=== PATIENT | female | born 1990 | race Two or more races ===

== ENCOUNTER 2022-02-14 11:01 | Emergency (ER) | payer OTHER, SELFPAY ==
[2022-02-14] VITALS (9 sets, daily range): BP systolic 94–122; BP diastolic 49–82; PULSE 56–89; RESP 16; TEMP 36.2; O2SAT 100; BMI 22.1
[2022-02-14 12:24] LABS: Basophils Absolute Auto 0.03 K/uL (0.00-0.30); Basophils Percent Auto 0.4 % (0.0-3.0); Eosinophils Absolute Auto 0.03 K/uL (0.00-0.50); Eosinophils Percent Auto 0.4 % (0.0-7.0); Hematocrit 37.8 % (33.0-51.0); Hemoglobin* 12.8 gm/dL (12.0-16.0); Immature Granulocytes Abs Auto 0.02 K/uL (0.00-0.30); Lymphocytes Percent Auto 19.5 % (20-44); Mean Corpuscular HGB Conc 34 gm/dL (32-36); Mean Corpuscular Hemoglobin 29 pg (26-34); Mean Corpuscular Volume 87 fL (80-100); Monocytes Percent Auto 4.2 % (0.0-11.0); Neutrophils Percent Auto 75.2 % (42.0-72.0); Platelet Count* 254 K/uL (140-440); Red Blood Count 4.35 m/uL (4.00-5.20); White Blood Count* 7.95 K/uL (4.50-11.00)
[2022-02-14 12:28] LABS: Slide Review Reflex No
[2022-02-14] MEDS: 0.9 % SODIUM CHLORIDE 1000 ml 1,000 ML IV (12:28)
[2022-02-14 12:43] LABS: Troponin, Point-of-Care* 0.01 ng/ml (0.01-0.04)
[2022-02-14 12:49] LABS: Chloride* 103 mmol/L (96-114); Partial Thromboplastin Time* 23 Seconds (23-33); Potassium* 3.8 mmol/L (3.6-5.1); Sodium* 133 mmol/L (135-149)
[2022-02-14 12:50] LABS: INR 0.95 (0.91-1.10); Prothrombin Time 13.1 Seconds
[2022-02-14 12:52] LABS: Blood Urea Nitrogen* 18 mg/dL (5-24); Carbon Dioxide* 21 mmol/L (20-32); Creatinine* 0.5 mg/dL (0.5-1.5); D Dimer Quantitative* 0.39 ug/ml (0.00-0.50); Est. Creatinine Clearance* 121.89; Estimated Glomerular Filt Rate 128 ml/min
[2022-02-14 12:53] LABS: Calcium* 8.6 mg/dL (8.4-10.6); Glucose* 86 mg/dL (60-115)
--- NOTE | 2022-02-14 14:03 | ED_ITS ---
HPI - Chest Pain General Date Seen: 02/14/22 Chief Complaint: Chest Pain Stated Complaint: 13 weeks , chest/left arm pain Time Seen by Provider: 02/14/22 11:39 Source: patient and family Mode of arrival: ambulatory Limitations: no limitations History of Present Illness HPI narrative: Patient is a 31-year-old female presents here with left-sided chest discomfort with radiation to her left arm, this came on at 10:00 a.m. when she was at work, made worse by taking a deep breath in, a course of this is occurring over proximally 35-40 minutes and became worse. Is not associated with any coughing, any wheezing, any hemoptysis, he had no nausea vomiting associated with this. She denies any leg swelling or previous history of pulmonary emboli or DVTs, there is a positive family history in a family of heart disease, but she has no previous episodes. With this chest pain she has had before although not this significant, she thought about telling her OBGYN that she had this, but she has not. MD complaint: chest pain and chest discomfort Onset (ago): minute(s) Timing of current episode: episodic Prior episodes: Yes Onset: during rest Pain location: left chest Pain radiation: left arm and left shoulder Severity: moderate Quality: tightness, aching and shooting Relieving factors: nothing Exacerbating factors: inspiration and movement Treatment prior to arrival: none Risk Factors Coronary artery disease risk factors: none Thoracic aortic dissection risk factors: none Pulmonary embolism risk factors: Related Data On Oral Contraceptives: No Home Medications Medication Instructions Recorded Confirmed vit no.95-ferrous 1 tab PO DAILY 02/14/22 02/14/22 fumarate 28 mg-folic acid 800 mcg tablet () Allergies Allergy/AdvReac Type Severity Reaction Status Date / Time Penicillins Allergy Intermediate Hives Verified 02/14/22 11:38 Review of Systems Status of ROS Reports: 10 or more systems reviewed and unremarkable except as noted in History and below PFSH PFSH Social History Smoking Status: Never smoker Do you use any of these nicotine containing products: None Second hand tobacco smoke exposure: No How often do you have a drink containing alcohol: never How often do you have six or more drinks on one occasion: Never AUDIT-C Alcohol total score: 0 Non-prescribed substance use: denies use Exam Const Vital Signs, click to edit/add: Vital Signs - 24 hr 02/14/22 11:39 02/14/22 13:30 02/14/22 13:00 Temperature 97.2 F L Pulse Rate [Pulse Oximeter] 56 L 85 71 Respiratory Rate 16 Blood Pressure [Left Upper Arm] 122/82 118/78 114/49 L Pulse Oximetry 100 100 100 Oxygen Delivery Method Room Air Room Air Room Air 02/14/22 15:24 02/14/22 15:51 02/14/22 12:30 Temperature Pulse Rate [Pulse Oximeter] 66 65 61 Respiratory Rate Blood Pressure [Left Upper Arm] 94/61 106/65 109/74 Pulse Oximetry 100 100 100 Oxygen Delivery Method Room Air Room Air Room Air 02/14/22 12:00 02/14/22 11:35 02/14/22 14:00 Temperature Pulse Rate [Pulse Oximeter] 57 L 89 Respiratory Rate Blood Pressure [Left Upper Arm] 101/69 122/82 107/57 L Pulse Oximetry 100 Oxygen Delivery Method Room Air Room Air Documenting provider has reviewed patient's vital signs: yes Common normals: no apparent distress, average body habitus, oriented x3, no limitations, healthy appearing, alert and well nourished [facility] Common normals: normocephalic, head/scalp atraumatic, hearing grossly normal bilaterally, external ears normal, EAC's normal, TM's normal bilaterally, external nose normal, nasal mucous membranes and turbinates normal, moist oral mucous membranes, oropharynx normal, dentition normal and gingiva normal Head and scalp: normocephalic and atraumatic Nose: external nose normal and nasal mucous membranes and turbinates normal External ear: external ears normal External auditory canal: EAC's normal Tympanic membrane: TM's normal bilaterally Eye Common normals: PERRL, EOMs intact bilaterally, conjunctivae normal, no scleral icterus, no papilledema, normal visual mak by confrontation and fundi normal bilaterally Conjunctiva: conjunctiva(e) normal Pupil: PERRL Direct Ophthalmoscopy: no papilledema and fundi normal bilaterally Neck & C-Spine Common normals: full ROM, no lymphadenopathy, supple, no meningeal signs, no JVD, thyroid normal and no carotid bruits Thyroid: thyroid normal Lymph Lymphatic: no lymphadenopathy noted and no lymphedema noted Chest Common normals: inspection of chest normal, palpation of chest normal, inspection of breasts normal and palpation of breasts normal Resp Common normals: normal respiratory effort, no retractions, no use of accessory muscles, clear to auscultation bilaterally and percussion normal Auscultation: clear to auscultation bilaterally Percussion: percussion normal Cardio Common normals: no JVD, regular rate, regular rhythm, S1 normal heart sound, S2 normal heart sound, no gallops, no clicks, no murmurs, no rub and peripheral pulses 2+ throughout Rate: regular rate Rhythm: regular rhythm Heart sounds: S1 normal and S2 normal Peripheral pulses: pulses 2+ throughout GI Common normals: Normal to inspection, nondistended, normoactive bowel sounds present, soft to palpation, non-tender, no hepatosplenomegaly, no masses and no bruits Palpation: soft and no hepatosplenomegaly Common normals: no CVA tenderness Bladder/kidney exam: no CVA tenderness Back & Pelvis Common normals: no CVA tenderness, thoracic and lumbar spine normal to inspection, no thoracic nor lumbar tenderness, thoraco-lumbar ROM normal and straight leg raise negative bilaterally Extremity Common normals: normal to inspection, full ROM, normal capillary refill, no joint enlargement, no clubbing, cyanosis or edema, no calf tenderness and no pedal edema Neuro Common normals: oriented x3 Sensorium/orientation: alert Meningeal signs: no meningeal signs Psych Common normals: mental status grossly normal Course Vital Signs Vital signs: Initial Vital Signs Blood Pressure 122/82 02/14/22 11:35 Blood Pressure Mean 95 02/14/22 11:35 Blood Pressure Position Supine 02/14/22 11:35 Oxygen Delivery Method 02/14/22 11:35 Vital Signs Blood Pressure 122/82 02/14/22 11:35 Oxygen Delivery Method 02/14/22 11:35 Temperature 97.2 F L 02/14/22 11:39 Pulse Rate 65 02/14/22 15:51 Respiratory Rate 16 02/14/22 11:39 Blood Pressure 106/65 02/14/22 15:51 Pulse Oximetry 100 02/14/22 15:51 Oxygen Delivery Method 02/14/22 15:51 MDM - Chest Pain MDM Narrative Medical decision making narrative: During the evaluation of this patient I considered multiple differential diagnosis is. The life-threatening differential diagnosis include coronary disease/AL, pulmonary embolism, pneumothorax, pneumonia, and aortic dissection. Other differential diagnosis included but were not limited to pericarditis, myoc arditis, chest wall pain, GERD, esophageal rupture, rib fracture contusion, pleurisy, as well as other etiologies. Point of care ultrasound did not show any abnormalities unfortunately I was unable to save these to be viewed. I also was able to show her her baby P. Which was active in moving around. Anterior placenta as noted. Given the fact her pain is resolve, her D-dimer is negative, ultrasound is negative, EKG showed no acute findings, by my review, I think we can let her go. I have a low suspicion this is a PE, there is no evidence of right ventricular dilatation on the ultrasound, and the remainder of her examination is normal and she has resolved her issue. She can just use some Tylenol for the discomfort, return here as needed, Medical Records Data Attestation: I reviewed the patient's medical records. Lab Data Attestation: I reviewed the patient's lab results. Labs: Lab Results 02/14/22 02/14/22 02/14/22 Range/Units 11:48 12:15 12:15 WBC 7.95 (4.50-11.00) K/uL RBC 4.35 (4.00-5.20) m/uL Hgb 12.8 (12.0-16.0) gm/dL Hct 37.8 (33.0-51.0) % MCV 87 (80-100) fL MCH 29 (26-34) pg MCHC 34 (32-36) gm/dL RDW Coeff of Noman 13.0 (11.5-15.5) % Plt Count 254 (140-440) K/uL Neut % (Auto) 75.2 H (42.0-72.0) % Lymph % (Auto) 19.5 L (20-44) % Tompkins % (Auto) 4.2 (0.0-11.0) % Eos % (Auto) 0.4 (0.0-7.0) % Baso % (Auto) 0.4 (0.0-3.0) % Neut # (Auto) 6.00 (1.7-7.0) K/uL Lymph # (Auto) 1.60 (0.90-2.90) K/uL Tompkins # (Auto) 0.30 (0.00-0.90) K/UL Eos # (Auto) 0.03 (0.00-0.50) K/uL Baso # (Auto) 0.03 (0.00-0.30) K/uL Abs Immat Gran (auto) 0.02 (0.00-0.30) K/uL INR 0.95 (0.91-1.10) APTT 23 (23-33) Seconds D-Dimer Quant (PE/DVT) 0.39 (0.00-0.50) ug/ml Sodium (135-149) mmol/L Potassium (3.6-5.1) mmol/L Chloride (96-114) mmol/L Carbon Dioxide (20-32) mmol/L BUN (5-24) mg/dL Creatinine (0.5-1.5) mg/dL Estimated Creat Clear Estimated GFR ml/min Glucose (60-115) mg/dL Calcium (8.4-10.6) mg/dL Troponin I (0.01-0.04) ng/mL POC Troponin I 0.01 (0.01-0.04) ng/ml 02/14/22 02/14/22 02/14/22 Range/Units 12:15 14:00 14:25 WBC (4.50-11.00) K/uL RBC (4.00-5.20) m/uL Hgb (12.0-16.0) gm/dL Hct (33.0-51.0) % MCV (80-100) fL MCH (26-34) pg MCHC (32-36) gm/dL RDW Coeff of Noman (11.5-15.5) % Plt Count (140-440) K/uL Neut % (Auto) (42.0-72.0) % Lymph % (Auto) (20-44) % Tompkins % (Auto) (0.0-11.0) % Eos % (Auto) (0.0-7.0) % Baso % (Auto) (0.0-3.0) % Neut # (Auto) (1.7-7.0) K/uL Lymph # (Auto) (0.90-2.90) K/uL Tompkins # (Auto) (0.00-0.90) K/UL Eos # (Auto) (0.00-0.50) K/uL Baso # (Auto) (0.00-0.30) K/uL Abs Immat Gran (auto) (0.00-0.30) K/uL INR (0.91-1.10) APTT (23-33) Seconds D-Dimer Quant (PE/DVT) (0.00-0.50) ug/ml Sodium 133 L (135-149) mmol/L Potassium 3.8 (3.6-5.1) mmol/L Chloride 103 (96-114) mmol/L Carbon Dioxide 21 (20-32) mmol/L BUN 18 (5-24) mg/dL Creatinine 0.5 (0.5-1.5) mg/dL Estimated Creat Clear 121.89 Estimated GFR 128 ml/min Glucose 86 (60-115) mg/dL Calcium 8.6 (8.4-10.6) mg/dL Troponin I < 0.01 L < 0.01 L (0.01-0.04) ng/mL POC Troponin I 0.03 (0.01-0.04) ng/ml ECG Data Attestation: I personally reviewed and interpreted this ECG as follows: ECG interpretation date: 02/14/22 Prior ECG tracings: not available for review Interpretation: EKG x2 shows normal sinus rhythm with no acute ST wave changes. Discharge Plan Discharge Clinical Impression: Chest pain Patient Disposition: Home w/ Parent or Adult Condition: Improved Instructions: Chest Pain (DC) Additional Instructions: Home rest use of Tylenol if you have this come on again. Very reassuring laboratory work and ultrasound of your heart and also your baby. Return here if increasing chest pain shortness of breath or other concerns. Prescriptions: No Action PNV cmb#95-ferrous fumarate-FA [] 28 mg iron- 800 mcg tablet 1 tab PO DAILY Follow Up/Referrals: Provider,Not a Local [Primary Care Provider] - Stand Alone Forms: MyHealth Info Instructions Procedures Ultrasound Cardiac exam #1: Anatomical areas examined: subxiphoid, parasternal long, parasternal short and apical 4 chamber Indications: chest pain and dyspnea Exam type: limited transthoracic echocardiogram Impression: negative exam
[2022-02-14 14:23] LABS: Troponin, Point-of-Care* 0.03 ng/ml (0.01-0.04)
[2022-02-14 15:19] LABS: Troponin I* < 0.01 ng/mL (0.01-0.04)
[2022-02-14 15:46] LABS: Troponin I* < 0.01 ng/mL (0.01-0.04)
== END 2022-02-14 16:03 | disposition home or self-care (01) ==
PROVIDERS: Emergency Provider Family Medicine
DX: R07.9 Chest pain, unspecified (principal); Z3A.13 13 weeks gestation of pregnancy
CPT/HCPCS: 36415; 76604; 76705; 80048; 84484; 85025; 85379; 85610; 85730; 93005; 93308; 99284; 99285; J7030

== ENCOUNTER 2022-08-25 13:25 | Outpatient (CLI) | payer OTHER, SELFPAY ==
--- NOTE | 2022-08-25 19:00 | W.PM.LAC.MC ---
Consult Note - Mom Date of Visit Date of visit: 08/25/22 internal controls consultant: Windy Richardson Visit Code: Visit Patient's Information Phone number: [phone] : 2 Para: 2 Allergies Penicillins Allergy (Intermediate, Verified 02/14/22 11:38) Hives Work Plans: returns to work in 3 months (works from home) Delivery Information Delivery type: Weeks Gestation: 40.0 Gestational Age: SGA Weight: 2.92 kg Discharge Weight: 2.778 kg Baby's Information Baby's Age at Visit: 3 days Baby's Provider or Clinic: Dr. Arellano Jaundice: No Reason for Consult Reason for Consult: painful, shallow latch Past Experience Past Experience: Yes (nursed her older child, but only for about three weeks) Current Frequency of Day Feedings: every 2 - 3 hours around the clock, cluster fed last night Both Breasts: Yes (usually) Suck: not very aggressive Latch: fairly wide Length of Time: about 30 minutes total Pumping Pumping: Yes (has pumped a few times since D/C to help bring her milk in ) Supplementing EMB Supplement: No Formula Supplement: No Baby Elimination Number of Wet Diapers a Day: about 7 Number of BM a Day: about 6: transitioning to breast milk stool Breast/Nipple Condition Breast Information: WNL Engorgement: No (milk coming in ) Maternal Nipple Condition - Left: Common Nipple Maternal Nipple Condition - Right: Common Nipple Sore Nipples: Yes (right side) Onsite Pre-Feed weight: 2.818 kg Post-Feed weight: 2.87 kg Milk Transferred (mL): 52 Assessments/Interventions Assessments/Interventions: Met with mom and this now three day old ex- term SGA baby for consult.? Mom rec'd care at [facility] and delivered at [facility].? She reports having difficulty nursing her older child and only breastfed for about three weeks (she exclusively pumped for a year).? This baby is nursing every 2 - 3 hours and will usually take both sides, nursing sessions last about 30 minutes.? Mom has a blister on her right nipple that is causing pain and she states baby isn't opening his mouth very wide when he latches.? She has both a [place] hands free pump, a Medela manual pump, and a Spectra electric pump.? She's used the Spectra a few times since D/C to help bring her milk in faster, but hasn't offered baby any EBM.? Breasts WNL- symmetrical with rounded lower quadrants, intramammary distance is <?1.5 inches.? Nipples are everted and don't flatten or retract on compression.? The right nipple has a small area of damage, but it appears to be healing.? She feels her milk is beginning to come in, but denies any engorgement.? Nipples were measured for correct flange size.? Baby has gained 40 grams from D/C and is only 3% below BW at 3 DOL.? Per mom he has equal ROM when turning his head and moving his extremities and he isn't favoring one side over the other in clinic.? His palate is high and he has a suck blister on his upper lip; the upper lip is easy to flange.? He isn't that aggressive when sucking on a finger and his tongue doesn't consistently extend past the gum line.? He does cup his tongue around the finger and it has good lateral movement.? The lower frenulum is WNL. Mom latched baby in an awkward football position and the latch was shallow.? When she was verbally coached on the correct position, encouraged to aim her nipple for his nose, and to bring him to her when he opened wide he had a deeper latch and she was more comfortable; even more improvement when his lower lip was flanged.? Some clicking was noted initially but this resolved as the feeding progressed.? Mom switched him to the left side trying the cross cradle hold and was comfortable.? Baby nursed about 30 minutes transferring 52 ml.? Plan: 1. Continue nursing him every 2 - 3 hours, offering both sides and using the ideas above to get a deep latch.? 2. Suggested mom pump/Haakaa/hand express to comfort if needed after nursing; flange fit guide given. 3. No medical need to supplement so suggested she postpone introducing a bottle until is well established. 4. Reviewed and gave a handout on a few tongue/sucking exercises to help him extend his tongue over the gum line more consistently. 5. Suggested she consider a craniosacral therapist or chiropractor d/t the high palate and suck blister. 6. Will f/u in one month to see how the latch is feeling and for a pre and post weight check. If still having difficulty could consider a pediatric dental evaluation. 7. Will fax note to Dr. [facility] at [facility]. Meds Home Medications and Allergies Home Medications Medication Instructions Recorded Confirmed Type vit no.95-ferrous 1 tab PO DAILY 02/14/22 02/14/22 History fumarate 28 mg-folic acid 800 mcg tablet () Allergies Allergy/AdvReac Type Severity Reaction Status Date / Time Penicillins Allergy Intermediate Hives Verified 02/14/22 11:38
== END 2022-08-25 13:26 | disposition home or self-care (01) ==
PROVIDERS: Visit Provider Obstetrics & Gynecology
DX: Z39.1 Encounter for care and examination of lactating mother (principal)
CPT/HCPCS: 99211

== ENCOUNTER 2023-07-11 11:11 | Emergency (ER) | payer OTHER, SELFPAY ==
[2023-07-11 11:27] VITALS: BP 122/77; PULSE 64; RESP 18; TEMP 36.6; O2SAT 99; BMI 21.5
--- NOTE | 2023-07-11 14:10 | CRLHL7_ITS ---
For Patients: As a result of the Century Cures Act, medical imaging exams and procedure reports are released immediately into your electronic medical record. You may view this report before your referring provider. If you have questions, please contact your health care provider. INDICATION: Leg pain and swelling. TECHNIQUE: Ultrasound venous duplex lower left extremity. Compression venous exam was performed using freeman-scale, color Doppler, and spectral Doppler analysis. COMPARISON: None. FINDINGS: Deep veins: Sonographic imaging demonstrates the left common femoral, deep femoral, superficial femoral, popliteal, posterior tibial and the contralateral right common femoral veins to be fully compressible with normal color Doppler blood flow. Superficial veins: Greater saphenous vein is fully compressible. No popliteal cyst. IMPRESSION: Normal left lower extremity venous ultrasound, no sign of deep venous thrombosis. Dictated by Scooter Laguerre MD @ 07/11/2023 3:20:20 PM (Electronically Signed)
--- NOTE | 2023-07-11 14:20 | ED_ITS ---
HPI - Extremity Injury (Lower) General Time Seen by Provider: 14:20 Date Seen: 07/11/23 Chief Complaint: Extremity Pain/Injury, Lower Stated Complaint: L calf pain Time Seen by Provider: 07/11/23 14:20 History of Present Illness HPI Narrative: Yane is a very pleasant 33-year-old female currently on the cora nonsmoker who comes to the emergency room with complaints of left calf that pain. Patient notes that a waking in the middle of the night with calf pain that she describes as very sharp. She did not notice any redness on her leg and was able to go back to sleep. This morning it happened again. She denies a history of DVT, recent injury. She works out on the [employer] daily and did that yesterday but does not recall any pain. She has not had fever chills or any shortness of breath. Her is a nurse at [employer] and of course of they were concerned about the possibility of a DVT. Patient does not have any back pain or numbness or tingling of the legs. No weakness of the lower extremities. Related Data Home Medications Medication Instructions Recorded Confirmed vit no.95-ferrous 1 tab PO DAILY 02/14/22 07/11/23 fumarate 28 mg-folic acid 800 mcg tablet () Allergies Allergy/AdvReac Type Severity Reaction Status Date / Time Penicillins Allergy Intermediate Hives Verified 07/11/23 11:34 Review of Systems Status of ROS: Reports: 10 or more systems reviewed and unremarkable except as noted in History and below Narrative: Denies back pain. Const: Denies: fever or chills Cardio: Denies: chest pain or shortness of breath with exertion Resp: Denies: shortness of breath or cough GI: Denies: abdominal pain PFSH PFSH Social History Smoking Status: Never smoker Do you use any of these nicotine containing products: None Second hand tobacco smoke exposure: No How often do you have a drink containing alcohol: never How often do you have six or more drinks on one occasion: Never AUDIT-C Alcohol total score: 0 Non-prescribed substance use: denies use Exam Narrative: Exam Narrative: Alert and oriented. Very pleasant well-spoken young woman. External ears eyes nose clear. Heart with regular rate and rhythm breathing without difficulty no respiratory distress Sensation intact. Of full motor intact. No hyperreflexia noted. No evidence of erythema. Calf is palpated without any masses. Const: Vital Signs, click to edit/add: Vital Signs - 24 hr 07/11/23 11:27 07/11/23 14:45 Temperature 97.9 F Pulse Rate [Right Pulse Oximeter] 64 65 Respiratory Rate 18 18 Blood Pressure [Ri t Upper Arm] 122/77 110/65 Pulse Oximetry 99 100 Oxygen Delivery Me thod Room Air Room Air Documenting provider has reviewed patient's vital signs: yes Course Course ED Course: Differential diagnosis includes but is not limited to radicular symptoms, muscle strain, plantaris injury, DVT, muscle strain. This time have ordered ultrasound of the left lower extremity. Vital Signs Vital signs: Initial Vital Signs Temperature 97.9 F 07/11/23 11:27 Temperature Source Temporal Artery Scan 07/11/23 11:27 Pulse Rate 64 07/11/23 11:27 Respiratory Rate 18 07/11/23 11:27 Blood Pressure 122/77 07/11/23 11:27 Blood Pressure Mean 92 07/11/23 11:27 Blood Pressure Position Sitting 07/11/23 11:27 Pulse Oximetry 99 07/11/23 11:27 Oxygen Delivery Method Room Air 07/11/23 11:27 Vital Signs Temperature 97.9 F 07/11/23 11:27 Pulse Rate 64 07/11/23 11:27 Respiratory Rate 18 07/11/23 11:27 Blood Pressure 122/77 07/11/23 11:27 Pulse Oximetry 99 07/11/23 11:27 Oxygen Delivery Method Room Air 07/11/23 11:27 Temperature 97.9 F 07/11/23 11:27 Pulse Rate 65 07/11/23 14:45 Respiratory Rate 18 07/11/23 14:45 Blood Pressure 110/65 07/11/23 14:45 Pulse Oximetry 100 07/11/23 14:45 Oxygen Delivery Method Room Air 07/11/23 14:45 MDM - Extremity Injury (Lower) MDM Narrative Medical decision making narrative: 1. Left calf pain-negative ultrasound for DVT. No evidence of redness or injury to indicate an early cellulitis. I suspect this is musculoskeletal in nature. Patient does take magnesium and electrolytes and is well hydrated at this time. Continue to monitor. Ibuprofen or Tylenol as needed for discomfort. 2. Disposition-Yane was allowed to depart prior to the return of her results. I have just called her with those results which are negative at 16 18 hours. Return as needed for onset of new symptoms. Medical Records Attestation: I reviewed the patient's medical records. Imaging Data Venous US: Attestation: I have reviewed the pertinent imaging results. Radiologist's impression: Deep veins: Sonographic imaging demonstrates the left common femoral, deep femoral, superficial femoral, popliteal, posterior tibial and the contralateral right common femoral veins to be fully compressible with normal color Doppler blood flow. Superficial veins: Greater saphenous vein is fully compressible. No popliteal cyst. IMPRESSION: Normal left lower extremity venous ultrasound, no sign of deep venous thrombosis. Discharge Plan Discharge Clinical Impression: Pain of left calf Patient Disposition: Home, Self-Care Condition: Unchanged Additional Instructions: Will call you with results of ultrasound. Prescriptions: No Action PNV cmb#95-ferrous fumarate-FA [] 28 mg iron- 800 mcg tablet 1 tab PO DAILY Follow Up/Referrals: Provider,Not a Local [Primary Care Provider] - Stand Alone Forms: [facility] Info Instructions
[2023-07-11 14:45] VITALS: BP 110/65; PULSE 65; RESP 18; O2SAT 100
--- NOTE | 2023-07-11 14:45 | ED.NURSE ---
Verbal discharge per MD chaudhary.
== END 2023-07-11 14:46 | disposition home or self-care (01) ==
PROVIDERS: Emergency Provider Family Medicine
DX: M79.662 Pain in left lower leg (principal)
CPT/HCPCS: 93971; 99283

== ENCOUNTER 2024-02-12 15:59 | Emergency (ER) | payer OTHER, SELFPAY ==
[2024-02-12 16:08] VITALS: BP 118/76; PULSE 61; RESP 16; TEMP 37.2; O2SAT 100; BMI 22.3
--- NOTE | 2024-02-12 16:28 | ED.GENADULT ---
HPI - General Adult General Chief complaint: Chest Pain Stated complaint: Chest pain, RT neck jaw shoulder arm pain Time Seen by Provider: 02/12/24 16:02 Source: patient Mode of arrival: ambulatory Limitations: no limitations History of Present Illness HPI narrative: 33-year-old female coming in today complaining of chest pain that started last night. She woke up this morning and the pain was gone however it slowly has come back. She describes it as a dull constant pain that is located in the right axillary region and radiates down the upper arm and up her neck on the right side. She denies any fevers or chills. Patient does work out regularly. She denies any unintentional weight loss. No dizziness or lightheadedness. She denies any electric shock-like discomfort with movement of her neck. She denies any worsening of the pain with movement of her neck. She states that the pain gets better if she elevates her arm and rests it over her head. She denies coughing or shortness of breath. Related Data Home Medications ?Medication ?Instructions ?Recorded ?Confirmed levonorgestrel 21 mcg/24 hr (up to intrauterine 02/12/24 8 years) 52 mg intrauterine device (Mirena) terbinafine HCl 250 mg tablet 250 mg PO DAILY 02/12/24 02/12/24 Previous Rx's ?Medication ?Instructions ?Recorded prednisone 20 mg tablet 40 mg (2 x 20 mg) PO DAILY 5 days 02/12/24 #10 tabs Allergies Allergy/AdvReac Type Severity Reaction Status Date / Time Penicillins Allergy Intermediate Hives Verified 02/12/24 16:15 Review of Systems Status of ROS: Reports: 10 or more systems reviewed and unremarkable except as noted in History and below [facility] Social History Smoking Status: Never smoker Do you use any of these nicotine containing products: None Second hand tobacco smoke exposure: No How often do you have a drink containing alcohol: never How often do you have six or more drinks on one occasion: Never AUDIT-C Alcohol total score: 0 Non-prescribed substance use: denies use Exam Narrative: Exam Narrative: Well-nourished well-developed patient in no acute distress. Alert and oriented. Answers questions appropriately. Mood and affect are appropriate. Thoughts are goal oriented and rational. No tangential or magical thinking noted. Patient speaks in full sentences without needing to catch her breath. HEENT: Normocephalic atraumatic. Pupils are equally round reactive to light. Extraocular muscles are intact. Conjunctivae are moist without any icterus noted. Moist mucous membranes. Neck is soft without any lymphadenopathy. She has no tenderness to palpation of the cervical spine. She has full range of motion of the neck with flexion, extension, side bending or rotation without pain. Cardiovascular: Heart is regular rate and rhythm S1 and S2 are present without any murmurs. Lungs: Clear to auscultation bilaterally no wheezes rhonchi or rales are appreciated. Patient takes deep breaths without any discomfort. Skin: Axillary region appears normal, there is no lymphadenopathy or skin changes noted. She has no tenderness to palpation of the chest wall. Shoulder abduction release test is positive. Hand junior accountant is normal and symmetric. Strength of the upper extremities at both proximal and distal muscle groups are 5/5 and symmetric. Const: Vital Signs, click to edit/add: Vital Signs - 24 hr 02/12/24 16:08 Temperature 98.9 F Pulse Rate [Pulse Oximeter] 61 Respiratory Rate 16 Blood Pressure [Le ft Upper Arm] 118/76 Pulse Oximetry 100 Oxygen Delivery Me thod Room Air Course Course ED Course: EKG done in triage, read by me, shows normal sinus rhythm with a pulse of 64. Vital Signs Vital signs: Initial Vital Signs Temperature 98.9 F 02/12/24 16:08 Temperature Source Temporal Artery Scan 02/12/24 16:08 Pulse Rate 61 02/12/24 16:08 Pulse Rhythm Regular 02/12/24 16:08 Pulse Strength 3+ Normal 02/12/24 16:08 Respiratory Rate 16 02/12/24 16:08 Blood Pressure 118/76 02/12/24 16:08 Blood Pressure Mean 90 02/12/24 16:08 Blood Pressure Position Semi-Fowlers 02/12/24 16:08 Pulse Oximetry 100 02/12/24 16:08 Oxygen Delivery Method Room Air 02/12/24 16:08 Vital Signs Temperature 98.9 F 02/12/24 16:08 Pulse Rate 61 02/12/24 16:08 Respiratory Rate 16 02/12/24 16:08 Blood Pressure 118/76 02/12/24 16:08 Pulse Oximetry 100 02/12/24 16:08 Oxygen Delivery Method Room Air 02/12/24 16:08 Temperature 98.9 F 02/12/24 16:08 Pulse Rate 61 02/12/24 16:08 Respiratory Rate 16 02/12/24 16:08 Blood Pressure 118/76 02/12/24 16:08 Pulse Oximetry 100 02/12/24 16:08 Oxygen Delivery Method Room Air 02/12/24 16:08 Medical Decision Making MDM Narrative Medical decision making narrative: 33-year-old female cervical radiculopathy. Recommend steroid treatment, NSAIDs, avoid provocative activity. Follow up with PCP if worsening. ECG Data Attestation: I personally reviewed and interpreted this ECG as follows: Discharge Plan Discharge Clinical Impression: Cervical radiculopathy Patient Disposition: Home, Self-Care Condition: Stable Additional Instructions: You have a pinched nerve. If your pain worsens, recommend starting steroids. In the meantime can take ibuprofen 400-600 mg 3 times a day as needed, always take with food. Avoid activities that provoke the pain, consider physical therapy. Prescriptions: New prednisone 20 mg tablet 40 mg PO DAILY 5 Days Qty: 10 0RF No Action terbinafine HCl 250 mg tablet 250 mg PO DAILY Mirena 21 mcg/24 hr (8 yrs) 52 mg intrauterine device intrauterine Follow Up/Referrals: Provider,Not a Local [Primary Care Provider] - Stand Alone Forms: [employer] Info Instructions
[2024-02-12 16:48] VITALS: BP 107/69; PULSE 73; RESP 16
== END 2024-02-12 16:50 | disposition home or self-care (01) ==
LOC: ED 16:28
PROVIDERS: Emergency Provider Family Medicine
DX: M54.12 Radiculopathy, cervical region (principal)
CPT/HCPCS: 99284

== ENCOUNTER 2024-10-02 07:55 | Outpatient (CLI) | payer OTHER, SELFPAY ==
--- NOTE | 2024-10-02 08:15 | CRLHL7_ITS ---
For Patients: As a result of the Cures Act, medical imaging exams and procedure reports are released immediately into your electronic medical record. You may view this report before your referring provider. If you have questions, please contact your health care provider. OB ULTRASOUND LESS THAN 14 WEEKS, 10/02/2024 CLINICAL HISTORY: Dating and viability. TECHNIQUE: Real time freeman scale imaging of the fetus was performed transvaginally. SURGERY: . COMPARISON: None. FINDINGS: LMP: 08/06/2024. ZEYAD by LMP: 05/13/2025. GA: 8 weeks 1 day. Baby A: CRL: 2.1 cm, 8 weeks 5 days. ZEYAD: 05/09/2025. FHR: 176 bpm. GEST SAC: 3.3 cm, appears within normal limits. YOLK SAC: 3.3 mm, appears within normal limits. Baby B: CRL: 2 cm, 8 weeks 4 days. ZEYAD: 05/10/2025. FHR: 165 bpm. GEST SAC: 3.9 cm, appears within normal limits. YOLK SAC: 2.6 mm, appears within normal limits. RIGHT OVARY: 3.3 x 1.8 x 2.8 cm. Within normal limits. CL. LEFT OVARY: 3 x 1.6 x 2.7 cm. Within normal limits. CL. IMPRESSION: Diamniotic/dichorionic twin gestation. Twin A measures 8 weeks 5 days with sonographic due date 05/09/2025. Twin B measures 8 weeks 4 days with a sonographic due date of 05/10/2025. Scooter White M.D. Diagnostic Radiologist [email or web address] Transcribed: 10:07 am DW/Dictated by: Scooter White MD @ 10/02/2024 9:20:00 AM (Electronically Signed)
== END 2024-10-02 07:56 | disposition home or self-care (01) ==
LOC: US 07:57
PROVIDERS: Visit Provider Physician Assistant
DX: Z34.91 Encounter for supervision of normal pregnancy, unspecified, first trimester (principal); O30.041 Twin pregnancy, dichorionic/diamniotic, first trimester; Z3A.08 8 weeks gestation of pregnancy
CPT/HCPCS: 76817; 83021; 86592; 86703; 86704; 86706; 86762; 86787; 86803; 86850; 86900; 86901; 87086; 87340

== ENCOUNTER 2024-10-02 09:30 | Outpatient (CLI) | payer OTHER, SELFPAY | END 2024-10-02 09:31 | disposition home or self-care (01) | PROVIDERS: Visit Provider Physician Assistant | DX: Z34.91 Encounter for supervision of normal pregnancy, unspecified, first trimester (principal); O30.001 Twin pregnancy, unspecified number of placenta and unspecified number of amniotic sacs, first trimester; Z3A.08 8 weeks gestation of pregnancy | CPT/HCPCS: 83020; 83021; 85660; 86592; 86703; 86704; 86706; 86762; 86787; 86803; 86850; 86900; 86901; 87086; 87340 ==

== ENCOUNTER 2025-01-11 13:56 | Outpatient (CLI) | payer OTHER, SELFPAY ==
[2025-01-11 14:05] VITALS: PULSE 78; O2SAT 98
[2025-01-11 14:06] VITALS: BP 116/69; PULSE 74
--- OUTSIDE RECORDS SUMMARY | 2025-01-11 14:34 | XMS_ITS | Encounter Summary ---
Author Organization [facility] Address [address] [place] [address] Care Team Providers Care Blood Tester Name Role Phone Alexandria Velasquez PA-C Primary Care Provider [phone] Encounter Details Date Type Department Care Team (Latest Contact Info) Description 06/26/1995 Orders Only Severo Brewer MD [address] [place] [id number] Social History Tobacco Use Types Packs/Day Years Used Date Smoking Tobacco: Never Assessed Comments Unknown Sex and Gender Information Value Date Recorded Sex Assigned at Not on file Legal Sex Female 4:08 AM CDT Gender Identity Not on file Sexual Orientation Not on file documented as of this encounter Plan of Treatment Not on file documented as of this encounter Visit Diagnoses Not on filedocumented in this encounter Additional Health Concerns Infection Onset Date Last Indicated Resolved Time R/O COVID19 06/24/2020 06/24/2020 06/24/2020 6:08 PM TOWER WATCHMAN R/O COVID19 10/23/2020 10/23/2020 10/23/2020 5:10 PM CDT R/O COVID19 04/06/2021 04/06/2021 04/06/2021 10:4 6 PM CDT documented as of this encounter Care Teams Blood Tester Relationship Specialty Start Date End Date Alexandria Velasquez PA-C [address] [place] [address] PCP - General Physician Chief Of Surgery 05/01/23 documented as of this encounter
--- OUTSIDE RECORDS SUMMARY | 2025-01-11 14:34 | XMS_ITS | Encounter Summary ---
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
--- OUTSIDE RECORDS SUMMARY | 2025-01-11 14:35 | XMS_ITS | Encounter Summary ---
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
--- OUTSIDE RECORDS SUMMARY | 2025-01-11 14:35 | XMS_ITS | Encounter Summary ---
Author Organization [employer] Address [address] [place] [address] Care Team Providers Care Profiling Machine Set Up Operator Name Role Phone Alexandria Velasquez PA-C Primary Care Provider [phone] Encounter Details Date Type Department Care Team (Late st Contact Info) Description 07/12/1995 Orders Only [facility] Lennie Thomas MD Social History Tobacco Use Types Packs/Day Years [...] R/O COVID19 06/24/2020 06/24/2020 06/24/2020 6:08 PM AIRPLANE TUBE BUILDER R/O COVID19 10/23/2020 10/23/2020 10/23/2020 5:10 PM CDT R/O COVID19 04/06/2021 04/06/2021 04/06/2021 10:4 6 PM CDT documented as of this encounter Care Teams Profiling Machine Set Up Operator Relationship Specialty Start Date End Date Alexandria Velasquez PA-C [address] [place] [address] PCP - General Physician Stone Driller 05/01/23 documented as of this encounter
--- OUTSIDE RECORDS SUMMARY | 2025-01-11 14:35 | XMS_ITS | Clinical Summary ---
Author [facility] Address [address] [place] [address] Care Team Providers Care Assembling Inspector Name Role Phone Alexandria Velasquez PA-C Primary Care Provider [phone] Source Comments You are receiving this document as you are listed as the primary care provider,follow-up provider, or the patient has been referred to you for consultation.This is in compliance with the Medicare andOhio[facility] Hospital[facility] EHR Incentive Program,which states Providers who transition their patient to another setting of careor provider of care or refers their patient to another provider of care shouldprovide summary care record for each transition of care or referral. [facility] Allergies Active Allergy Reactions Criticality Noted Date Comments Adhesive 10/21/2018 Kinesio tape skin looked burned Other 07/18/2017 control pills causes chest pains Penicillins Hives High 08/31/2004 Medications [id number] OR Take 1 Tablet by mouth. 9 Active levonorgestrel (MIRENA) 20 MCG/24HR IUD 1 Each by Intrauterine route once. Active doxycycline monohydrate (MONODOX) 100 MG capsule Take 1 Capsule (100 mg) by mouth two times a day. 60 Capsule 4 Active terbinafine (LAMISIL) 250 MG tablet Take 1 Tablet (250 mg) by mouth daily. 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 Acne vulgaris 05/20/2015 Overview (06/04/2019): Chest back / summer Lactose intolerance 05/20/2015 Immunizations Immunization Administration Dates Next Due 4vHPV (Gardasil) 11/29/2009,06/30/2009, 9 DTP 02/11/2002, 4,12/23/1990,1989,1989,1989 DTaP 02/11/2002, 4,12/23/1990,1989,1989,1989 Flu Vac (3+ yrs) 03/14/2012 Flublok (RIV4) 04/17/2019 HepB Ped/Adol (0-18 yrs) 02/11/2002,09/02/2001,0 07/31/2001 HepB, Unspecified Formulation 02/11/2002, 002,07/31/2001 Hib (HbOC) 09/10/1990 Hib, Unspecified Formulation 09/04/1990 IPV (Polio) 06/20/1994, 1,1989,1989 Influenza (Fluzone 0.25, 6-35 mos) 03/15/2015 Influenza IIV4 (Quadrivalent ) 0.5mL (06389) 03/30/2020,03/15/2015 Influenza, Unspecified Formulation 03/16/2017, MMR 10/12/1998,09/10/1990 OPV, Trivalent (Orimune or tOPV) 994,12/23/1990,1989,1989 Polio, Unspecified Formulation 4,12/23/1990,1989,1989 Td 02/11/2002 Tdap 12/19/2019,03/18/2014,12/29/2003 Varicella 10/19/1998(Deferred: Immune by Greg rodriguez) Family History Medical History Relation Name Comments Coronary Artery Disease Paternal Grandfather Other Paternal Grandfather mary on's Cancer, Breast Negative Family History Cancer, Colon Negative Family History Cancer, Ovary Negative Family History Thyroid Disorder Negative Family History Relation Name Status Comments Father Alive Mother Alive Paternal Grandfather Social History Tobacco Use Types Packs/Day Years Used Date Smoking Tobacco: Never Smokeless Tobacco: Never Alcohol Use Standard Drinks/Week Comments Yes 0 (1 standard drink = 0.6 oz pure alcohol) twice a week- updated on 10/25/20 PHQ-2 Answer Date Recorded PHQ-2 Score 0 06/19/2023 Financial Resource Strain Answer Date R ecorded Is it hard for you to pay fo r the very basics like food, housing, medical care or heating? No 06/15/2023 Food Insecurity Answer Date Recorded Does your food run out before you have the money to buy more? No 06/15/2023 Transportation Needs Answer Date Record ed Does a lack of transportatio n keep you from your medical appointments or from getting your medications? No 023 Comments No Sex and Gender Information Value Date Recorded Sex Assigned at Not on file Legal Sex Female 4:08 AM CDT Gender Identity Not on file Sexual Orientation Not on file Occupation Industry Job Start Date Job End Date Not on file Not on file Not on file Not on file Last Filed Vital Signs Vital Sign Reading Time Taken Comments Blood Pressure 117/65 10/25/2020 3:18 PM CDT Pulse 55 10/25/2020 3:18 PM CDT Temperature 36.7 C (98 F) 10/24/2018 1:38 PM CDT Respiratory Rate 16 06/04/2019 4:52 PM YOUTH DEVELOPMENT PROFESSIONAL Oxygen Saturation 100% 10/24/2018 1:38 PM CDT Inhaled Oxygen Concentration - - Weight 54.9 kg (121 lb) 10/25/2020 3:18 PM CDT Height 152.4 cm (5') 04/29/2020 1:57 PM CDT Body Mass Index 23.63 04/29/2020 1:57 PM CDT Plan of Treatment Health Maintenance Due Date Last Done Comments Hep C Screening (Preventive Services) 1989 HIV Screening (Preventive Services) 2005 Adult Preventive Visit 06/04/2021 9, 03/28/2002, 06/20/1994 Cervical Cancer Screening 08/30/2023 08/30/2018 (Com pleted) COVID-19 Vaccine ( season) 2024 11/22/2020, 11/01/2020 Influenza Vaccine (Season Ended) 2025 04/06/2022, 03/30/2020, 04/17/2019, Additional history exists DTaP/Tdap/Td Vaccine (12 - Tdap) 06/01/2032 06/01/2022, 12/19/2019, 03/18/2014, Additional history exists Zoster/Shingles Vaccine (1 of 2) 2039 Hib Vaccine Completed 09/10/1990, 09/04/1990 IPV (Polio) Vaccine Completed 06/20/1994, 06/20/1994, 06/20/1994, Additional history exists HepB Vaccine Completed 02/11/2002, 01/15, 09/02/2001, Additional history exists HPV Vaccine Completed 11/29/2009, 06/15, 05/31/2009 HepA Vaccine Aged Out No longer eligi ble based on patient's age to complete this topic MCV4 Vaccine Aged Out No longer eligi ble based on patient's age to complete this topic Meningococcal B Vaccine Aged Out No l onger eligible based on patient's age to complete this topic Pneumococcal Vaccine Aged Out No long er eligible based on patient's age to complete this topic Insurance [address] [place] [address] [facility] [address] [place] [address] [place] [address] [facility] [address] [place] [id number] Care Teams Assembling Inspector Relationship Specialty Start Date End Date Alexandria Velasquez PAAndersonC [address] [place] [address] PCP - General Physician Stamp Collector 05/01/23
--- OUTSIDE RECORDS SUMMARY | 2025-01-11 14:35 | XMS_ITS | Encounter Summary ---
Author Organization [facility] Address [address] [place] [address] Care Team Providers Care Assistant Professor Of Dietetics Name Role Phone Alexandria Velasquez PA-C Primary Care Provider [phone] Encounter Details Date Type Department Care Team (Latest Contact Info) Description 04/11/1995 Orders Only Rakel Heard, CQ DEVELOPER, BANKING SUPERVISOR [address] [facility] [place] [address] Social History Tobacco Use Types Packs/Day Years [...] R/O COVID19 06/24/2020 06/24/2020 06/24/2020 6:08 PM HVAC ESTIMATOR R/O COVID19 10/23/2020 10/23/2020 10/23/2020 5:10 PM CDT R/O COVID19 04/06/2021 04/06/2021 04/06/2021 10:4 6 PM CDT documented as of this encounter Care Teams Assistant Professor Of Dietetics Relationship Specialty Start Date End Date Alexandria Velasquez PA-C [address] [place] [address] PCP - General Physician Shield Installer 05/01/23 documented as of this encounter
--- OUTSIDE RECORDS SUMMARY | 2025-01-11 14:35 | XMS_ITS | Continuity of Care Document ---
Author Organization [facility] [employer] [facility], [id number] Address [address] [place] [address] Assessment Encounter Date Assessment Date Assessment LastModified by Organization Details LastModified Time 12/02/2024 12/02/2024 I spent a total of 31 minutes providing care for this patient including: preparing to see the patient, obtaining a medical history, completing a medically appropriate physical exam, completing documentation of visit information and plans in the EMR, counseling the patient and/or caregiver regarding her diagnosis, treatment options and follow up plans, as well as any necessary communication of subsequent test results to the patient. Excludes time spent on separately identifiable services. [email or web address] Not available 12/04/2024 17:00:36 Plan of Treatment Reminders Order Date Submit Date Provider Last Modified By Organization Details Last Modified Time Details Appointments None record ed. Lab None record ed. Referral None record ed. Procedures None record ed. Surgeries None record ed. Imaging None record ed. Medication Orders None record ed. Patient TargetsNo targets recorded. Patient InstructionsNo instructions recorded. Reason for Referral None Reported. Procedures Surgical History Date Name Laterality Status Provider Name and Address Organization Details Recorded Time 07/28/2023 Date of Last Pap Smear completed Gertrude Yancey [employer] 12/02/2024 14:59:58 Imaging Results None recorded. Procedure Notes None recorded. Medical Equipment None Reported. Allergies Allergen ID Allergen Name Allergen Category Reaction Reaction Severity Criticality Documentation Date Start Date Code Code System Note Provider Name and Address Organization Details Recorded Time 613058 Product containin g penicilli n (product) medicatio n hives Not available high 12/02/2024 02309 8003 SNOMED KARMEN Song [employer] 15:14:58 Medications Name Sig Start Date Stop Date Status Note LastModified by Organization Details LastModified Time terbinafine HCl 250 mg tablet TAKE 1 TABLET BY MOUTH EVERY DAY 12/02 completed Not Available Not Available Not Available doxycycline monohydrate 100 mg capsule TAKE 1 CAPSULE (100 MG) BY MOUTH TWO TIMES A DAY. 12/02 completed Not Available Not Available Not Available mupirocin 2 % topical ointment APPLY TOPICALLY 3 TIMES A DAY 12/02 completed Not Available Not Available Not Available Adult Low Dose Aspirin 81 mg tablet active Not Available Not Available No t Available Fish Oil active Not Available Not Avai lable Not Available active Not Available Not Avai lable Not Available ciclopirox 8 %-urea-camp hor-menthol -eucalyptol topical solution APPLY TO NAIL OF RIGHT 4TH FINGER DAILY 12/02 completed Not Available Not Available Not Available Vitals Date Recorded Body weight Body mass index (BMI) Body height Systolic blood pressure Diastolic blood pressure Provider Name and Address Organization Details Last Updated DateTime 12/02/2024 87931.13 g 24.4 kg/m2 154.94 cm 112 mm[Hg] 60 mm[Hg] Gertrude Yancey [employer] 15:13:14 Social History Question Answer Notes LastModified by Organizat ion Details LastModified Time Tobacco Smoking Status Never Smoker KARMEN Song [employer] 12/02/2024 14:59:12 Do You Have An Advance Directive? No Information not available 12/02/2024 Is Blood Transfusion Acceptable In An Emergency? Yes Information not available 12/02/2024 What Is Your Level Of Caffeine Consumption? Occasional Information not available 12/02/2024 What Type Of Diet Are You Following? REGULAR Information not available 12/02/2024 What Is The Highest Grade Or Level Of School You Have Completed Or The Highest Degree You Have Received? [id number] Information not available 12/02/2024 How Many Days Of Moderate To Strenuous Exercise, Like A Brisk Walk, Did You Do In The Last 7 Days? 5 Information not available 12/02/2024 How Many Times Per Week Do You Exercise? 5-7 Times Per Week Information not available 12/02/2024 Spouses/Partners Name: Idris [email or web address] Information not available 12/02/2024 What Is Your Relationship Status? Information not available 12/02/2024 Has Tobacco Cessation Counseling Been Provided? No Information not available 12/02/2024 Are You Currently In School? No Information not available 12/02/2024 Sex: Unknown Functional Status Question Answer Note LastModified by [employer] ion Details LastModified Time Do you use any illicit or recreational drugs? No Information not available 12/02/2024 Do you or have you ever used any other forms of tobacco or nicotine? No Information not available 12/02/2024 What is your level of alcohol consumption? None Information not available 12/02/2024 Are you currently employed? No Information not available 12/02/2024 What is your exercise level? Heavy Information not available 12/02/2024 Mental Status None recorded. Family History Relationship Description Onset Age of this Age Resolved Age Notes LastModified by Organization Details LastModified Time Mother Depressive disorder 47 Not available 2024 14:58:45 Paternal Grandfather Diabetes mellitus Not available 2024 14:58:45 Paternal Grandfather Kidney disease 80 Not available 2024 14:58:45 Medical History Condition Response Neurology- Memory Loss/Dementia N Neurology- Stroke/TIA N Rheumatology- Fibromyalgia/Chronic Pain N Dermatology-Acne N Cancer- Genetic Screening N Endocrinology- Vitamin Deficiency N Endocrinology-Other N Urology-Other N Cardiology- Atrial fib/atrial flutter N ID- Usual childhood diseases- Chicken Po x Y Rheumatology- Autoimmune Disease N Nephrology-Renal Disease N Neurology- Seizures/Epilepsy N Cardiology- Heart Attack N Ortho-Fractures N Reviewed with no changes N Neurology- Neuropathy N Endocrinology- Prolactinoma N Urology- Recurrent Urinary Tract Infecti ons N Pulmonary- Seasonal Allergies/Allergic R hinitis N Psych- PMS/PMDD N Pulmonary-Other N Pulmonary- Lung Disease N Endocrinology- Glucose Intolerance/Insul in Resistance N Psych- Anxiety Disorder N Hematology- Anemia N GI- Reflux/Ulcers N Cancer- Skin N GI- Irritable Bowel Syndrome N Cardiology- Heart Disease N GI- Colon Polyps N Ortho-Other N Endocrinology- Osteopenia N Psych-Other N ID- MRSA N Endocrinology- Elevated Prolactin N ID-Other N Psych- Eating Disorder N Ortho- Arthritis N Urology- Urinary Incontinence N Pulmonary- Asthma N Urology- Hematuria (Blood in Urine) N Pulmonary- Sleep Apnea N Neurology- Dementia N Vascular-Aneurysm N Urology- Interstitial Cystitis N Endocrinology- Hypothyroidism N Eyes-other N Neurology- Multiple Sclerosis N Rheumatology- Arthritis N GI- Hemorrhoids N Neurology-Other N ID- Rheumatic Fever N Hematology- Blood Clotting Disorder/Fact or V Leiden N Ortho- Degenerative Joint Disease N Cardiology-Other N Hematology- Bleeding Disorder N Endocrinology- Osteoporosis N Psych- Depression N Hematology-Other N Ortho-Chronic Back Pain N ID- Tuberculosis/Positive PPD N Dermatology-Other N Dermatology-Eczema/Psoriasis N ID- HIV N Cardiology- High Cholesterol N Cardiac- Mitral Valve Prolapse N Cancer- Ovary N ID- Chicken Pox/Shingles Y Cardiology- Heart Arrhythmia N Urology- Kidney or Bladder Problems N Rheumatology- Restless Leg Syndrome N Psych- Mental Disorder N Endocrinology- Hyperthyroidism N Endocrinology- Thyroid Problems N Cancer- Breast N Psych- ADD N ID- Herpes N GI- Liver Disease/Hepatitis N Weight Management/Obesity N Cancer- Colon N ENT- Hearing Loss N Hematology- Blood Transfusion N Cancer- Vulvar 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 Cancer- Vaginal N GI-Other N Neurology- Headaches/Migraines N Endocrinology- Diabetes N Cancer- Cervical N No diseases or conditions N Pulmonary- COPD/Emphysema N GI- Vitamin Deficiency N GI- Crohn's/Ulcerative Colitis N Endocrinology- History of Gestational Di abetes N Psych- Bipolar Disease N ENT- Seasonal Allergies/Allergic Rhiniti s N Cardiology- High Blood Pressure N Cancer- Lung N Cancer- Endometrial/Uterine N Eyes- Glaucoma N Eyes- Vision Loss/Macular Degeneration N ENT-Other Y Rheumatology-Other N Cardiac- Aneurysm N Urology- Kidney Infection N Cardiology- Heart Murmur/Mitral Valve Pr olapse N Hematology- DVT/Pulmonary Embolism N Urology- Stones N Cancer-Other N GI- Gallbladder Disease N Gynecological History Statement/Question Response History of Endometriosis N History of Abnormal PAP N History of Vulvar Dysplasia N History of Recurrent Ovarian Cysts N Total lifetime partners less than 5 Date of LMP 08-12-2024 History of Cervical Dysplasia N Menstrual Cycle Length (days) 27 Do you have history of sexual trauma? N History of Infertility N Sexually Active Y Age at Menarche: 11 History of Sexually Transmitted Infectio n N HPV Vaccine Complete Diethylstilbestrol (MARCUS) exp osed daughters of women who took MARCUS during ? N Current Control Method none History of Fibroids N Date of Last Pap Smear 07/28/2023 History of PCOS N History of Dysmenorrhea N Obstetrics History GPAL:G 3 P 2 0 0 2 Type Value Multiple Births 0 Full Term 2 Induced 0 Spontaneous 0 Premature 0 Living 2 Ectopics 0 Total 3 Immunizations Vaccine Type Date Status Note Provider Nam e and Address Organization Details Recorded Time Hib, unspecified formulation 1 completed Gertrude Zoltan null, [place] [facility] 12/02/2024 15:13:20 Influenza, recombinant, quadrivalent, PF 9 completed Gertrude Zoltan null, [place] [facility] 12/02/2024 15:13:20 MMR 1 completed Gertrude Zlotan [place] [facility] 12/02/2024 15:13:20 MMR 9 completed Gertrude Zoltan [place] [facility] 12/02/2024 15:13:20 COVID-19, mRNA, LNP-S, PF, 30 mcg/0.3 mL dose 1 completed Gertrude Zoltan null, [place] [facility] 12/02/2024 15:13:20 COVID-19, mRNA, LNP-S, PF, 30 mcg/0.3 mL dose 1 completed Gertrude Zoltan [place], [place] [facility] 12/02/2024 15:13:20 influenza, unspecified formulation 7 completed Gertrude Zoltan [place] [facility] 12/02/2024 15:13:20 Tdap 0 completed Gertrude Zoltan [place] [facility] 12/02/2024 15:13:20 Tdap 4 completed Gertrude Z[place] [facility] 12/02/2024 15:13:20 Tdap 2 completed Gertrude Z[place] [facility] 12/02/2024 15:13:20 DTP 0 completed Gertrude Zolt[place] [facility] 12/02/2024 15:13:21 DTP 0 completed Gertrude Zolt[place] [facility] 12/02/2024 15:13:21 DTP 0 completed Gertrude Zolt[place] [facility] 12/02/2024 15:13:21 DTP 1 completed Gertrude Z[place] [facility] 12/02/2024 15:13:21 DTP 2 completed Gertrude [place] [facility] 12/02/2024 15:13:21 DTP 4 completed Gertrude [place] [facility] 12/02/2024 15:13:21 Hep B, unspecified formulation 2 completed Gertrude Z[place] [facility] 12/02/2024 15:13:21 Hep B, unspecified formulation 2 completed Gertrude [place] [facility] 12/02/2024 15:13:21 Hep B, unspecified formulation 2 completed Gertrude [place] [facility] 12/02/2024 15:13:21 polio, unspecified formulation 0 completed Gertrude [place] [facility] 12/02/2024 15:13:21 polio, unspecified formulation 0 completed Gertrude [place] [facility] 12/02/2024 15:13:21 polio, unspecified formulation 1 completed Gertrude [place] [facility] 12/02/2024 15:13:21 polio, unspecified formulation 4 completed Gertrude Zolt[place] [facility] 12/02/2024 15:13:21 Influenza, split virus, trivalent, preservative 2 completed Gertrude Z[place] [facility] 12/02/2024 15:13:21 HPV, quadrivalent 0 completed Gertrude [place] [facility] 12/02/2024 15:13:21 HPV, quadrivalent 9 completed Gertrude [place] [facility] 12/02/2024 15:13:21 HPV, quadrivalent 9 completed Gertrude [place] [facility] 12/02/2024 15:13:21 Influenza, split virus, quadrivalent, PF 5 completed Gertrude [place] [facility] 12/02/2024 15:13:21 Influenza, split virus, quadrivalent, PF 0 completed Gertrude [place] [facility] 12/02/2024 15:13:21 Influenza, split virus, quadrivalent, PF 2 completed Gertrude Zolt[place] [facility] 12/02/2024 15:13:21 Past Encounters Encounter ID Performer Location Encounter Start Date Encounter Closed Date Diagnosis/Indication Diagnosis SNOMED-CT Code Diagnosis ICD10 Code Diagnosis Note [id number] MARIAJOSE ESCAMILLA MD [id number] [facility] [place] [place] [address] 12/02/2024 14:45:09 12/02/2024 15:52:46 Past history of section [id number] Z98.891 - We discussed TOLAC as a reasonable option, especially given prior successful . She is familiar with the risks of this process.- Regarding twin delivery, we reviewed that within our practice, very few physicians offer breech extraction . Therefore, if either of the twins were breech at the time of delivery, would be recommende d- IV access and delivery in the OR for twins will be recommende d, and she is open to this.- We discussed role of epidural for pain management and ability to transition quickly from vaginal delivery to . She declines epidural for purposes of pain management and understand s that if she labors and there is need for emergent delivery, she will likely need general anesthesia and that this comes with additional risks.- She understand s that our goal is for collaborat mylene care with the patient, while maintainin g a medically safe environmen t.- Yane asked many appropriat e questions, all of which were answered to her satisfacti on. Health Concerns Section Related Observation LastModified by Organization Detai ls LastModified Time None Recorded Concern Status LastModified by Organization Details LastModified Time None Recorded Payers Encounter Date Sequence Insurance Name Policy Number Policy Singleton Covered Member ID Singleton Member ID Guarantor Name 12/02/2024 1 [employer] [id number] Idris Barron [id number] Yane Simona Anderson Notes Date Note Type Note Provider Name and Address Organization Details Recorded Time 12/02/2024 text/html 34 yo wi th Jorge Luis twins at 16 weeks here for consultation regarding delivery options for current . At the time of our visit, records were not available. Her consultation, as such, is based on her reported medical and surgical history. She is very detailed historian. First scheduled for breech (failed ECV)Second unmedicated at [facility], fast labor, no complications Currently with twins. Her thought going into was for home , but now that she has twins she would be open to hospital delivery. Currently being told that there are concerns about delivery of the second baby. Also wants to be able to have unmedicated delivery again. Was told that an epidural would likely be required with twins and is concerned about [place] [address] [facility],[address], [place], [address], [place] - [facility] [facility] 12/04/2024 17:10:07 OBGyn Episode No OBEpisode recorded.
--- OUTSIDE RECORDS SUMMARY | 2025-01-11 14:35 | XMS_ITS | Clinical Summary ---
Author Organization [place] Address [address] [place] [address] Care Team Providers Care Procurement Manager Name Role Phone Shirley Rico MD Primary Care Provider [phone] No Ref-Primary, Physician Unavailable [phone] Allergies Active Allergy Reactions Criticality Noted Date Comments Adhesive Tape Rash Low 10/21/2018 Kinesio tape skin looked burned Kinesio tape skin looked burned Estradiol Other (See Comments) 07/02/2022 Had chest pain/anxiety attacks with 3 different control pills Penicillins Hives High 02/18/2020 Medications Ascorbic Acid (VITAMIN C PO) Take 500 mg by mouth daily Active Vit-Fe Fumarate-FA (PNV PLUS MULTIVITAMIN) 27-1 MG TABS per tabletIndication s: Take 1 tablet by mouth daily Active fish oil-omega-3 fatty acids 1000 MG capsule Take 2 g by mouth daily Active cholecalciferol 50 MCG (1999 UT) tablet Take 2,000 Units by mouth daily Active Active Problems Problem Noted Date Diagnosed Date , delivered 08/22/2022 Single liveborn infant delivered vaginally 08/22 Labor and delivery, indication for care 08/21/19 23 S/P primary low transverse 03/05/2020 Encounter for triage in patient 020 Social History Tobacco Use Types Packs/Day Years Used Date Smoking Tobacco: Never Smokeless Tobacco: Never Alcohol Use Standard Drinks/Week Comments Not Currently 0 (1 standard drink = 0.6 oz pur e alcohol) Lutz Depression Scale Answer Date Recorded Last EPDS Total Score Not on file 08/23/2022 The thought of harming myself has occurred to me . 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 Legal Sex Female 3:07 AM [employer] SERVICE C[employer]IER Gender Identity Female 06/05/2022 2:57 PM AUTOMOTIVE SERVICE CASHIER Sexual Orientation Straight 06/05/2022 2: 57 PM AUTOMOTIVE SERVICE CASHIER Last Filed Vital Signs Vital Sign Reading Time Taken Comments Blood Pressure 107/70 08/23/2022 8:15 AM AUTOMOTIVE SERVICE CASHIER Pulse 68 08/23/2022 8:15 AM AUTOMOTIVE SERVICE CASHIER Temperature 36.6 C (97.8 F) 08/23/2022 8:15 AM AUTOMOTIVE SERVICE CASHIER Respiratory Rate 16 08/23/2022 8:15 AM AUTOMOTIVE SERVICE CASHIER Oxygen Saturation 100% 01/14/2021 1:05 PM CDT Inhaled Oxygen Concentration - - Weight 62.6 kg (138 lb) 07/02/2022 12:00 PM AUTOMOTIVE SERVICE CASHIER Height 152.4 cm (5') 08/21/2022 8:49 PM AUTOMOTIVE SERVICE CASHIER Body Mass Index 26.95 07/02/2022 12:00 PM AUTOMOTIVE SERVICE CASHIER Plan of Treatment Health Maintenance Due Date Last Done Comments ADVANCE CARE PLANNING 1989 ANNUAL REVIEW OF HM ORDERS 1989 YEARLY PREVENTIVE VISIT 03/28/2003 03/28/2002, 06/20 HEPATITIS C SCREENING 2007 PAP 2010 DIABETES SCREENING 01/15/2024 01/14/2021 COVID-19 VACCINE ( season) 2024 11/22/2020, 11/01/2020 PHQ-2 (once per calendar year) 2024 INFLUENZA VACCINE (Season Ended) 2025 04/06/2022, 03/30/2020, 04/17/2019, Additional history exists DTAP/TDAP/TD VACCINE (13 - Td or Tdap) 06/01/2032 06/01/2022, 12/19/2019, 03/18/2014, Additional history exists ZOSTER VACCINE (1 of 2) 2039 HEPATITIS B VACCINE Completed 02/11/2002, 02/11/2002, 09/02/2001, Additional history exists HPV VACCINE Completed 11/29/2009, 06/15, 05/31/2009 HIV SCREENING Completed 08/01/2019 MENINGITIS VACCINE Aged Out No longer eligible based on patient's age to complete this topic PNEUMOCOCCAL VACCINE: PEDIATRICS (0 to 5 YEARS) AND AT-RISK PATIENTS (6 to 49 YEARS) Aged Out No longer eligible based on patient's age to complete this topic Procedures Procedure Name Priority Date/Time Associated Diagnosis Comments COMPREHENSIVE METABOLIC PANEL Routine 01/14/2021 1:34 PM CDT Right upper quadrant pain Nausea and vomiting, intractability of vomiting not specified, unspecified vomiting type Diarrhea, unspecified type HIV ANTIGEN ANTIBODY COMBO Routine 08/01/2019 from Last 3 Months or Most Recently Relevant to Health Maintenance Results * (ABNORMAL) Comprehensive metabolic panel (BMP + Alb, Alk Phos, ALT, AST, Total. Bili, TP) (01/14/2021 1:34 PM CDT) Sodium 134 133 - 144 mmol/L 01/14/2021 1:55 PM CDT [facility] Potassium 3.9 3.4 - 5.3 mmol/L 01/14/2021 1:55 PM CDT [facility] Chloride 101 94 - 109 mmol/L 01/14/2021 1:55 PM CDT [facility] Carbon Dioxide 26 20 - 32 mmol/L 01/14/2021 2:01 PM CDT [facility] Anion Gap 7 3 - 14 mmol/L 01/14/2021 2:01 PM CDT [facility] Glucose 75 70 - 99 mg/dL 01/14/2021 2:01 PM CDT [facility] Urea Nitrogen 14 7 - 30 mg/dL 01/14/2021 2:01 PM CDT [facility] Creatinine 0.85 0.52 - 1.04 mg/dL 01/14/2021 2:01 PM CDT [facility] GFR Estimate >90 >60 mL/min/{1 .73_m2} 01/14/2021 2:01 PM CDT [facility] Comment: Non GFR Calc Starting 07/02/2018, serum creatinine based estimated GFR (eGFR) will be calculated using the Chronic Kidney Disease Epidemiology Collaboration (CKD-EPI) equation. GFR Estimate If Black >90 >60 mL/min/{1 .73_m2} 01/14/2021 2:01 PM CDT [facility] Comment: GFR Calc Starting 07/02/2018, serum creatinine based estimated GFR (eGFR) will be calculated using the Chronic Kidney Disease Epidemiology Collaboration (CKD-EPI) equation. Calcium 9.1 8.5 - 10.1 mg/dL 01/14/2021 2:01 PM CDT [facility] Bilirubin Total 0.5 0.2 - 1.3 mg/dL 01/14/2021 2:29 PM CDT [facility] Albumin 3.9 3.4 - 5.0 g/dL 01/14/2021 2:29 PM T [facility] Protein Total 7.9 6.8 - 8.8 g/dL 01/14/2021 2:29 PM T [facility] Alkaline Phosphatase 109 40 - 150 U/L 01/14/2021 2:29 PM T [facility] ALT 53(H) 0 - 50 U/L 01/14/2021 2:29 PM T [facility] AST 35 0 - 45 U/L 01/14/2021 2:29 PM [facility] Blood 01/14/2021 1:34 PM CDT 01/14/2021 1:39 PM CDT us Lizzie Mosquera PA-C LAB - BLOOD ORDERA BLES Final Result [facility] [address] [address] [phone] [facility] [address] [place] [address] * HIV Antigen Antibody Combo (08/01/2019) HIV Antigen Antibody Combo non reactive Blood specimen (specimen) us Patient Reported LAB - BLOOD ORDERABLES Final Re sult from Last 3 Months or Most Recently Relevant to Health Maintenance Insurance [address] [place] [address] [employer] [address] [facility] [place] [address] [facility] For more information, please contact: [phone] * Full Code (Latest Code Status on File) Date Activated Date Inactivated Comments 08/21/2022 9:14 PM 08/23/2022 4:22 PM All basic and advanced life-sustaining interventions are performed as appropriate Question Answer Comments Code status determined by: Discussion with patie nt/ legal decision maker Care Teams Procurement Manager Relationship Specialty Start Date End Date Shirley Rico MD [address] [place] [address] 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
--- OUTSIDE RECORDS SUMMARY | 2025-01-11 14:35 | XMS_ITS | Data Portability ---
Author Organization [facility] [id number] Address [address] [address] [place] [address] Assessment Encounter Date Assessment Date Assessment LastModified [...] of Last Pap Smear completed Gertrude [facility] [employer] [facility] 12/02/2024 14:59:58 Imaging Results None recorded. Procedure Notes None recorded. Medical Equipment None Reported. Allergies Allergen ID Allergen Name Allergen Category Reaction Reaction Severity Criticality Documentation Date Start Date Code Code System Note Provider Name and Address Organization Details Recorded Time 929279 Product containin g penicilli n (product) medicatio n hives Not available high 12/02/2024 28071 8001 SNOMED [facility] 15:14:58 Medications Name Sig Start Date Stop [...] Address Organization Details Last Updated DateTime 12/02/2024 58930.13 g 24.4 kg/m2 154.94 cm 112 mm[Hg] 60 mm[Hg] Gertrude [facility] [employer] [facility] [facility] 15:13:14 Social History Question Answer Notes LastModified by Organizat ion Details LastModified Time Tobacco Smoking Status Never Smoker Gertrude pritchett [facility] [employer] [facility] [facility] 12/02/2024 14:59:12 Do You Have An Advance [...] Or The Highest Degree You Have Received? [id number] Information not available 12/02/2024 How Many Days Of Moderate To Strenuous Exercise, Like A Brisk Walk, Did You Do In The Last 7 Days? 5 Information not available 12/02/2024 How Many Times Per Week Do You Exercise? 5-7 Times Per Week Information not available 12/02/2024 Spouses/Partners Name: Idris [email or web address] Information not available 12/02/2024 What Is Your Relationship Status? Information not available 12/02/2024 Has Tobacco Cessation Counseling Been Provided? No Information not available 12/02/2024 Are You Currently In School? No Information not available 12/02/2024 Sex: Unknown Functional Status Question Answer Note LastModified by [employer] ion Details LastModified Time Do you use [...] Neurology- Memory Loss/Dementia N Neurology- Stroke/TIA N Dermatology-Acne N Rheumatology- Fibromyalgia/Chronic Pain N Cancer- Genetic Screening N Endocrinology- Vitamin Deficiency N Endocrinology-Other N Urology-Other N Cardiology- Atrial fib/atrial flutter N ID- Usual childhood diseases- Chicken Po x Y Rheumatology- Autoimmune Disease N Nephrology-Renal Disease N Neurology- Seizures/Epilepsy N Cardiology- Heart Attack N Ortho-Fractures N Neurology- Neuropathy N Reviewed with no changes N Endocrinology- Prolactinoma N Urology- Recurrent Urinary [...] Hematology- Blood Transfusion N Cancer- Vulvar N OIM CONSULTANT- Recurrent Vaginitis N Cancer- Vaginal N GI-Other [...] completed Gertrude [place] [facility] 12/02/2024 15:13:20 Influenza, recombinant, quadrivalent, PF 9 completed [place] [facility] 12/02/2024 15:13:20 MMR 1 completed [place] [facility] 12/02/2024 15:13:20 MMR 9 completed [place] [facility] 12/02/2024 15:13:20 COVID-19, mRNA, LNP-S, PF, 30 mcg/0.3 mL dose 1 completed [place] [facility] 12/02/2024 15:13:20 COVID-19, mRNA, LNP-S, PF, 30 mcg/0.3 mL dose 1 completed [place] [facility] 12/02/2024 15:13:20 influenza, unspecified formulation 7 completed [place] [facility] 12/02/2024 15:13:20 Tdap 0 completed [place] [facility] 12/02/2024 15:13:20 Tdap 4 completed [place] [facility] 12/02/2024 15:13:20 Tdap 2 completed [place] [facility] 12/02/2024 15:13:20 DTP 0 completed [place] [facility] 12/02/2024 15:13:21 DTP 0 completed [place] [facility] 12/02/2024 15:13:21 DTP 0 completed [place] [facility] 12/02/2024 15:13:21 DTP 1 completed [place] [facility] 12/02/2024 15:13:21 DTP 2 completed [place] [facility] 12/02/2024 15:13:21 DTP 4 completed [place] [facility] 12/02/2024 15:13:21 Hep B, unspecified formulation 2 completed [place] [facility] 12/02/2024 15:13:21 Hep B, unspecified formulation 2 completed [place] [facility] 12/02/2024 15:13:21 Hep B, unspecified formulation 2 completed [place] [facility] 12/02/2024 15:13:21 polio, unspecified formulation 0 completed [place] [facility] 12/02/2024 15:13:21 polio, unspecified formulation 0 completed [place] [facility] 12/02/2024 15:13:21 polio, unspecified formulation 1 completed [place] [facility] 12/02/2024 15:13:21 polio, unspecified formulation 12/06/199 4 completed [place] [facility] 12/02/2024 15:13:21 Influenza, split virus, trivalent, preservative 2 completed [place] [facility] 12/02/2024 15:13:21 HPV, quadrivalent 0 completed [place] [facility] 12/02/2024 15:13:21 HPV, quadrivalent 9 completed [place] [facility] 12/02/2024 15:13:21 HPV, quadrivalent 9 completed [place] [facility] 12/02/2024 15:13:21 Influenza, split virus, quadrivalent, PF 5 completed [place] [facility] 12/02/2024 15:13:21 Influenza, split virus, quadrivalent, PF 0 completed [place] [facility] 12/02/2024 15:13:21 Influenza, split virus, quadrivalent, PF 2 completed [place] [facility] 12/02/2024 15:13:21 Past Encounters Encounter ID Performer Location Encounter Start Date Encounter Closed Date Diagnosis/Indication Diagnosis SNOMED-CT Code Diagnosis ICD10 Code Diagnosis Note [id number] MARIAJOSE ESCAMILLA MD [id number] ,[address] [facility] [place] Miguel [id number] 12/02/2024 14:45:09 12/02/2024 15:52:46 Past history of section [id number] Z98.891 - We discussed TOLAC as a [...] collaborat mylene care with the patient, while markellin g a medically safe environmen t.- Yane asked many appropriat e questions, all of which were answered to her satisfacti on. Health Concerns Section Related Observation LastModified by Organization Detai ls LastModified Time None Recorded Concern Status LastModified by Organization Details LastModified Time None Recorded Advance Directives Directive N: Payers Insurance Date Sequence Insurance Name Policy Number Policy Singleton Covered Member ID Singleton Member ID Guarantor Name 12/02/2024 1 [facility] [id number] Idris Barron [id number] Yane Barron Notes Date Note Type Note Provider Name [...] scheduled for breech (failed ECV)Second unmedicated at [facility], fast labor, no complications Currently with twins. [...] is [place] [address] [facility],[address], [place], [address], [place] - [facility] 12/04/2024 17:10:07 OBGyn Episode No OBEpisode recorded.
--- OUTSIDE RECORDS SUMMARY | 2025-01-11 14:35 | XMS_ITS | Encounter Summary ---
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
--- OUTSIDE RECORDS SUMMARY | 2025-01-11 14:35 | XMS_ITS | Encounter Summary ---
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
--- OUTSIDE RECORDS SUMMARY | 2025-01-11 14:45 | XMS_ITS | Clinical Summary ---
Author Organization [employer] Address [address] [place] [address] Care Team Providers Care Inside Sales Manager Name Role Phone None Primary Care Provider Unavailabl e Allergies Active Allergy Reactions Criticality Noted Date Comments Adhesive Rash 10/21/2018 Kinesio tape skin looked burned Norgestimate-Ethinyl Estradiol Chest Pain 05/31/2009 3 different BC pills Penicillins Hives 12/08/2008 Medications levonorgestrel intrauterine device (MIRENA) 20 mcg/24 hr IUD Inject 1 Device intrauterine one time. 1 Device 0 2 Active [place]-3 Fatty Acids (FISH OIL) 500 mg capsule Take 2 capsules by mouth once daily. 0 5 Active Gjaagktl-Ob-Eoh- Fe-FA ( VITAMIN) tab tablet Take 1 tablet by mouth once daily. 0 9 Active Active Problems Problem Noted Date Diagnosed Date Hyperhidrosis 05/20/2015 Lactose intolerance 05/20/2015 Acne vulgaris 05/20/2015 Overview (05/20/2015): Chest back / summer Resolved Problems Problem Noted Date Diagnosed Date Resolved Date No Significant Past Medical History 04/28/2014 05/20/2015 Encounters Date Type Department Care Team Description 11/28/2024 Travel from Last 3 Months Immunizations Immunization Administration Dates Next Due DTaP 02/11/2002, 4,12/23/1990,1989,0 1989,1989 Hepatitis B (Peds) 02/11/2002,09/02/2001, 002 Hib Conjugate, Unspecified 09/04/1990 Human Papilloma Virus Vaccine 11/29/2009, 009,05/31/2009 Inactivated Polio Vaccine 06/20/1994,12/23/1990, 1989,1989 Influenza Virus, Unspecified 03/16/2017,03/14/20 12 Influenza, IIV4 (Age 6-35 Mos) 03/15/2015 MMR 10/12/1998,09/04/1990 Tdap 03/18/2014,12/29/2003 Family History Medical History Relation Name Comments Depression Father Obesity Father gastric bypass surgery Osteoporosis Father Diabetes Maternal Grandfather Suicidality Mother Diabetes Paternal Grandfather Heart Disease Paternal Grandfather heart issues Parkinsonism Paternal Grandfather Cancer-breast No Family History Cancer-colon No Family History Cancer-ovarian No Family History Relation Name Status Comments Brother Alive Father Alive Maternal Grandfather Mother Paternal Grandfather Social History Tobacco Use Types Packs/Day Years Used Date Smoking Tobacco: Never Smokeless Tobacco: Never Alcohol Use Standard Drinks/Week Comments Yes 0 (1 standard drink = 0.6 oz pur e alcohol) Occasional PHQ-2 Answer Date Recorded PHQ-2 Score 0 09/17/2018 Social Connections Answer Date Recorded Do you often feel lonely or isolated from those around you? 0 11/28/2024 Financial Resource Strain Answer Date R ecorded Difficulty of Paying Living Expenses 3 01/09/2025 Difficulty of Paying Living Expenses Not on file 01/09/2025 Food Insecurity Answer Date Recorded Do you worry your food will run out before you are able to buy more? 1 11/28/2024 Transportation Needs Answer Date Record ed Does lack of transportation keep you from medica l appointments? 1 11/28/2024 Does lack of transportation keep you from work, meetings or getting things that you need? 1 11/28/2024 Housing Stability Answer Date Recorded What is your housing situation today? 1 11/28/2024 Utilities Answer Date Recorded Do you have trouble paying f or utilities (for example, heat, electricity, water, phone)? 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 Not on file Not on file Obstetrics History Para Term AB IAB SAB Ectopic Multiple Livin g Live Births 0 0 0 0 0 0 0 0 0 0 Last Filed Vital Signs Vital Sign Reading Time Taken Comments Blood Pressure 102/60 03/05/2019 8:02 AM CDT Pulse 78 03/05/2019 8:02 AM CDT Temperature 36.8 C (98.2 F) 05/20/2015 8:43 AM GERIATRIC NURSE PRACTITIONER Respiratory Rate 16 09/06/2014 4:55 PM GERIATRIC NURSE PRACTITIONER Oxygen Saturation 99% 08/31/2015 7:39 AM GERIATRIC NURSE PRACTITIONER Inhaled Oxygen Concentration - - Weight 51.2 kg (112 lb 12.8 oz) 05/24/2018 7:33 AM GERIATRIC NURSE PRACTITIONER Height 152.5 cm (5' 0.04) 05/24/2018 7:33 AM CS T Body Mass Index 22 05/24/2018 7:33 AM GERIATRIC NURSE PRACTITIONER Plan of Treatment Upcoming Encounters Date Type Department Care Team (Late st Contact Info) Description 03/09/2025 8:30 AM CDT Office Visit [facility] [address] [place] [address] Windy Montana MD [address] [place] [address] Health Maintenance Due Date Last Done Comments Depression screening for age 12+ 2001 HIV for age 15-65 2004 Hepatitis C screening for age 18-79 2007 BMI (ht and wt on same day) for age 18+ 05/24/2019 05/24/2018, 05/21/2017, 08/31/2015 Pap test for age 21-65 09/13/2020 8 (Completed outside of [facility]), 07/20/2015 (Completed outside of [facility]), 03/18/2014, Additional history exists COVID-19 vaccine series ( season) 2024 Tetanus booster 03/18/2024 03/18/2014, 09/2013, 12/29/2003, Additional history exists Influenza Vaccine (Season Ended) 2025 03/16/2017, 03/15/2015, 03/14/2012 Hepatitis B series for 19+ Completed 02/11, 09/02/2001, 07/31/2001 Tdap Completed 03/18/2014, 12/29/2003 Pneumococcal series for age 6-49 Aged Out No longer eligible based on patient's age to complete this topic Procedures Procedure Name Priority Date/Time Associated Diagnosis Comments DIRECTOR MEDICAL SCIENCE THIN PREP PAP SCREEN IMAGED Routine 01/09/2011 6:17 PM CDT Screening for malignant neoplasm of the cervix from Last 3 Months or Most Recently Relevant to Health Maintenance Results * DIRECTOR MEDICAL SCIENCE THIN PREP PAP SCREEN IMAGED (01/09/2011 6:17 PM CDT) CYTOLOGY CYTOPATHOLOGY REPORT [facility] Status: Final Status [id number] CLINICAL INFORMATION Last Date of LMP :12/24/2010 Last Pap Date :05/31/2009 Last Pap Result :NIL ABN [place]/Bx Past 5 YRS :None Hormone Usage :Other Menstrual Status :Regular Periods [place]/Bx done today :No Additional Information :None given HPV Request :HPV if ASCUS SPECIMEN SOURCE :Cervical/vaginal ThinPrep Vial, screening SPECIMEN ADEQUACY :Satisfactory for evaluation Endocervical component present. INTERPRETATION/RES ULT Negative for intraepithelial lesion or malignancy (NIL) Cytology 1st Screener :sophie Signed by :sophie This specimen was screened by the FDA approved ThinPrep Imaging System and manually reviewed. NOTE: The Pap test is a screening technique, not a diagnostic procedure. It is used primarily to screen for squamous cancers and precursor lesions. Published studies have shown that it is subject to both false negative and false positive results. The pap test should not be used as the sole means to diagnose or exclude pre-malignant and malignant lesions. COLLECTED:01/09/11 ACCESSIONED: 01/10/11 SIGNED: 01/13/11 [facility] PAP [place] CODE NIL [facility] Cervical/Vaginal (Cervical/Vagina l) 01/09/2011 6:17 PM CDT 01/09/2011 6:13 PM CDT us Tha Morris MD PATHOLOGY/C YTOLOGY Final Result [facility] [place]NAL ZIP [address] [address] from Last 3 Months or Most Recently Relevant to Health Maintenance Insurance * Guarantor: Yane Barron Account Type Relation to Patient Date of Phone Billing Address Personal/Family Self 1990 [phone] (Work) [address] [place] [address] MEDICAID [facility] [address] [place] [id number] [facility] [address] [place] [id number] [facility] INSURANCE Member Subscriber Plan / Payer (Ef fective 2014-Present) Name:Yane Barron Member ID:[id number] Relation to Subscriber:Self Name:Yane Barron Subscriber ID:[id number] Payer ID:Not on file Group ID:Not on file Type:Not on file Address: [address] [address] [place], [place] [address] [facility] Care Teams Inside Sales Manager Relationship Specialty Start Date End Date None . PCP - General 11/10/24
--- NOTE | 2025-01-11 14:50 | PC.OBNST ---
NST Note NST Note Start: 01/11/25 14:47 Freq: Status: Active Protocol: Document 01/11/25 14:47 ABH (Rec: 01/11/25 14:49 ABH No Response) NST Note 3 Para (# of births) 2 EDC 05/09/25 Gestational Age In 23 Weeks & 1 Days Weeks & Days High Risk Factors Twins Patient Presented Decreased movement with Complaint(s) of Other Complaints FHR Baby A 155, FHR Baby B 145. RN at bedside adjusting FHR monitor and was able to monitor twins FHR for 4 minutes, then RN attempted to find Baby B FHR for NST and was unable to keep both babies on. Hadley Ribeiro MD called to bedside with ultrasound to assess FHR's, provider reports FHR Baby A 144 and FHR Baby B 150, states patient can discharge home. JEN Kim RN Date 01/11/25 JEN Vanegas RN Date 01/11/25 OB NST charge Yes Complete NST Note Yes via Write Note The provider's electronic signature indicates the NST is reactive/appropriate for gestational age. *Note to provider: If an addendum is required, open the patient's chart and click on the note under the Nurse/Allied Health tab.
== END 2025-01-11 14:54 | disposition home or self-care (01) ==
LOC: OB OUT 13:59 → OB 14:03
PROVIDERS: Visit Provider Family Medicine
DX: O36.8120 Decreased fetal movements, second trimester, not applicable or unspecified (principal); O30.002 Twin pregnancy, unspecified number of placenta and unspecified number of amniotic sacs, second trimester; Z3A.23 23 weeks gestation of pregnancy
CPT/HCPCS: 59025; G0463